=== PATIENT | female | born 1995 | race Caucasian/White ===

== ENCOUNTER 2017-10-11 10:11 | Emergency (ER) | payer OTHER ==
[2017-10-11 10:21] VITALS: BP 121/75; PULSE 87; TEMP 98.8; BMI 27.4
--- NOTE | 2017-10-11 12:18 | PDOC ---
History of Present Illness - General Chief Complaint: Edema Stated Complaint: SWOLLEN HANDS (21 WKS ) Time Seen by Provider: 10/11/17 11:41 History Source: Patient - History of Present Illness Timing/Duration: other Associated Symptoms: denies: chest pain, fever/chills, shortness of breath Past History - Past Medical History Allergies/Adverse Reactions: Allergies Allergy/AdvReac Type Severity Reaction Status Date / Time No Known Allergies Allergy Verified 10/11/17 10:20 Home Medications: Ambulatory Orders Ibuprofen [Motrin -] 600 mg PO TID #21 tablet 10/07/14 Oxycodone HCl/Acetaminophen [Percocet 5-325 mg Tablet -] 1 - 2 tab PO Q6H #14 tablet 10/07/14 Anemia: Yes (IRON PILLS DAILY FOR SEVERAL MONTHS) Asthma: Yes Cancer: No Cardiac Disorders: No COPD: No Diabetes: No GI Disorders: Yes (GALLSTONES DX 3-4 MONTHS AGO) HTN: No Seizures: No Thyroid Disease: No - Surgical History Abdominal Surgery: Yes (appendix removed) Appendectomy: Yes - Reproductive History (#): 3 Para: 2 Therapeutic (s) & number: No Spontaneous : 0 - Immunization History Immunization Up to Date: Yes - Suicide/Smoking/Psychosocial Hx Smoking History: Never smoked Have you smoked in the past 12 months: No Number of Cigarettes Smoked Daily: 0 Cigars Per Day: 0 Hx Alcohol Use: No Drug/Substance Use Hx: No Substance Use Type: None Hx Substance Use Treatment: No Review of Systems - Review of Systems Constitutional: No: Chills, Fever Respiratory: No: Shortness of Breath Cardiac (ROS): No: Chest Pain, Lightheadedness, Palpitations ABD/GI: No: Nausea, Vomiting, Abdominal cramping : No: Dysuria Neurological: No: Headache, Seizure *Physical Exam - Vital Signs Last Vital Signs Temp Pulse Resp BP Pulse Ox 98.8 F 87 18 121/75 99 10/11/17 10:17 10/11/17 10:17 10/11/17 10:17 10/11/17 10:17 10/11/17 10:17 - Physical Exam General Appearance: Yes: Appropriately Dressed. No: Apparent Distress HEENT: positive: Normal Voice Neck: positive: Supple Respiratory/Chest: negative: Respiratory Distress Gastrointestinal/Abdominal: negative: Tender Extremity: positive: Normal Inspection. negative: Tender, Swelling Integumentary: positive: Dry, Warm Neurologic: positive: Fully Oriented, Alert, Normal Mood/Affect Medical Decision Making - Medical Decision Making 10/11/17 12:16 22-year-old female, G1PO, 21 weeks and currently being evaluated for placenta previa per patient, here with complaint of pain to bilateral hand. Patient states she developed intermittent swelling to dorsum of hands bilaterally for 1 month and recently complaining of associated pain to site that usually worsen in am and gets better at nights. Pt states she f/u with Dr Avilez of OB and states she was told to come to ED if she developed pain. Denies leg or facial swelling and no headache, dizziness, abdominal pain or vaginal bleeding. Pt well-appearing and stable in ED with no obvious swelling, edema on exam. No further intervention needed as discussed ED attending. Patient discharged with return precautions. Otherwise, to follow up with OB *DC/Admit/Observation/Transfer Diagnosis at time of Disposition: Bilateral hand swelling - Discharge Dispostion Disposition: HOME Condition at time of disposition: Good - Referrals Referrals: Regi Braun MD [Primary Care Provider] - - Patient Instructions Printed Discharge Instructions: Managing Symptoms of Additional Instructions: Body changes such as some swelling is normal in . Based on our evaluation, there is no emergent pathology at this time. If swelling/pain gets worse and radiates to forearm and arm and you developed any additional symptoms , return to ED Otherwise follow-up with your OB - Post Discharge Activity
== END 2017-10-11 12:31 | disposition home or self-care (01) ==
LOC: JER 10:11
DX: O12.02 Gestational edema, second trimester (principal); Z3A.21 21 weeks gestation of pregnancy
CPT/HCPCS: 99282-25

== ENCOUNTER 2019-12-11 09:49 | Emergency (ER) | payer OTHER ==
--- NOTE | 2019-12-11 10:11 | PDOC ---
Attending Attestation - Resident Resident Name: MartinRaciel - HPI HPI: 12/11/19 11:36 Pt presents to the ED complaining of pelvic spotting and cramping that started two days ago. LMP 10/11. , with 2 elective abortions. - Physicial Exam PE: 12/11/19 11:37 12/11/19 11:39 12/11/19 11:39 Agree with resident exam. PAteint is alert and oriented x 3 and in no acute distress. Abdomen soft, non tender, non distended without guarding or rebound. - Medical Decision Making 12/11/19 11:39 pt presents to the ED complaining of pelvic spotting. Differential includes threatened AB, Spontaneous AB, ectopic, less likely molar . Will check bhcg and transvaginal US.
[2019-12-11 10:27] VITALS: BMI 25.6
--- NOTE | 2019-12-11 10:55 | PDOC ---
History of Present Illness - General Chief Complaint: ,Possible Stated Complaint: MISCARRIAGE Time Seen by Provider: 12/11/19 10:08 History Source: Patient Exam Limitations: No Limitations - History of Present Illness Initial Comments: HPI: 24 y/o female presenting to [facility] ER complaining of vaginal bleeding since Wednesday. Initially heavy but has decreased significantly. Now only notices blood when wiping. Did not observe clotted material. Experienced lower abdominal and lower back cramping pain. Has also significantly decreased over the interim. Denies chest pain, SOB, lightheadedness, or syncope. Pt reports a positive home test. OBGYN Hx: - LMP 11 Oct 2019 - G 7, T 4, P 0, A 3, L 4 - Last PAP Smear Unknown - H/o STDs Chlamydia, diagnosed with first . Received treatment and negative CHUY. - Reports feeling safe in her living environment. Denies concerns for personal safety. Medical Hx: - Denies past medical history. Denies prescription medications. Surgical Hx: - Appendectomy - Cholecystectomy - x1 Review of Systems: In addition to that documented in the HPI above, the additional ROS was obtained : Constitutional- Denies fevers or chills Head- Denies vision changes ENMT- Denies sore throat CV- Denies chest pain Resp- Denies SOB GI- Denies vomiting or diarrhea - Denies painful urination, dysuria MSK- Denies recent trauma Skin- Denies new rashes Neuro- Denies new numbness or tingling or weakness Endocrine- Denies polyuria Heme- Denies bruising Physical Examination: Vital signs and nursing notes reviewed. Constitutional- Well-developed, well-nourished adult female in no acute distress or obvious discomfort. Found sitting upright on [employer] table. Answered all questions appropriately and completely. Head- Normocephalic. No obvious external signs of trauma. Neck- Supple, trachea is midline. Cardiovascular / Chest- Regular rate and regular rhythm. No murmur, rubs, clicks , or gallops. Peripheral pulses- radial pulses full. Respiratory- Breathing unlabored. Equal chest rise and fall. Clear to auscultation bilaterally. No stridor, no wheezing, no rhonchi. Gastrointestinal- abdomen is soft, non-tender, non-distended. No pulsatile masses. No overlying skin lesions or obvious signs of trauma. Female Pelvic: External genitalia unremarkable. Vaginal wall mucosa is unremarkable. Speculum exam performed and cervix visualized. Trace bloody material protruding from OS, which was closed. No significant pooling. Bimanual exam without cervical motion tenderness, adnexal tenderness or any masses appreciated. RN chaperoned exam. Neuro- Alert and oriented x4. Moving all four extremities spontaneously. No facial asymmetry. No slurred speech. Skin- Warm, dry, and intact. Psych- Affect- appropriate. Mood- normal. Speech was non-labored, non- pressured. MDM: 24 y/o female presenting with improving vaginal bleeding in the setting of 1st trimester . Afebrile. Vitals unremarkable for hypotension or tachycardia. Physical exam as described above. Possible completed AB vs threatened AB vs physiologic bleeding of vs ectopic . Blood type O+ noted from previous T/S in [place]. Laboratory data reviewed. No clinically significant derangement noted. Not anemic. UA revealed bacteria and blood without pyuria, nitrites, or leukocyte esterase. Will prescribe Macrobid for asymptomatic bacteriuria in setting of . Will also prescribe vitamins. TVUS revealed IUP with possible small subchorionic hemorrhage. Will provide the pt a copy of the U/S report and encourage close OB f/u in clinic. 11 Dec 2019 13:51 PM Pt reassessed. Reports no further pain. Continues to notice trace bleeding while wiping without significant change from this morning. Discussed physical exam findings, laboratory results, and U/S findings with pt. Answered all questions. Provided return precautions. pt expressed verbal understanding and agreement with plan to discharge home with outpatient follow up. Provided copies of todays results. Encouraged close OB f/u. Raciel Martin M.D., PGY2 Emergency Medicine Resident Past History - Past Medical History Allergies/Adverse Reactions: Allergies Allergy/AdvReac Type Severity Reaction Status Date / Time No Known Allergies Allergy Verified 12/11/19 10:19 Home Medications: Ambulatory Orders Nitrofurantoin Monohyd/M-Cryst [Macrobid -] 100 mg PO BID #14 capsule 12/11/19 Vit No.124/Iron/Folic [ Vitamin Tablet] 1 each PO DAILY #30 tablet 12/11/19 Anemia: Yes (IRON PILLS DAILY FOR SEVERAL MONTHS) Asthma: Yes Cancer: No Cardiac Disorders: No COPD: No Diabetes: No GI Disorders: Yes (GALLSTONES DX 3-4 MONTHS AGO) HTN: No Seizures: No Thyroid Disease: No - Surgical History Abdominal Surgery: Yes (appendix removed) Appendectomy: Yes - Reproductive History Is Patient Now?: Yes (=+ home test, has not) (#): 4 Para: 2 Therapeutic (s) & number: No Spontaneous : 0 - Immunization History Immunization Up to Date: Yes - Psycho Social/Smoking Cessation Hx Smoking History: Unknown if ever smoked Have you smoked in the past 12 months: No Number of Cigarettes Smoked Daily: 0 Cigars Per Day: 0 Hx Alcohol Use: No Drug/Substance Use Hx: No Substance Use Type: None Hx Substance Use Treatment: No *Physical Exam - Vital Signs Last Vital Signs Temp Pulse Resp BP Pulse Ox 98.5 F 83 16 105/66 100 12/11/19 10:00 12/11/19 10:00 12/11/19 10:00 12/11/19 10:00 12/11/19 10:00 ED Treatment Course - LABORATORY CBC & Chemistry Diagram: 12/11/19 11:10 Discharge - Discharge Information Problems reviewed: Yes Clinical Impression/Diagnosis: Vaginal bleeding before 22 weeks gestation Condition: Good Disposition: HOME - Admission No - Additional Discharge Information Prescriptions: Nitrofurantoin Monohyd/M-Cryst [Macrobid -] 100 mg PO BID #14 capsule Vit No.124/Iron/Folic [ Vitamin Tablet] 1 each PO DAILY #30 tablet - Follow up/Referral Referrals: Britt Avila MD [Staff Physician] - CallBack Reminder: GC/C and HIV tests - Patient Discharge Instructions Patient Printed Discharge Instructions: DI for Vaginal Bleeding During Additional Instructions: You were seen today for vaginal bleeding while you are . Your blood work was normal. Your ultrasound showed a possible small amount of blood around the fetus (subchorionic hemorrhage). This is not something life threatening at this time, but will need to be further evaluated by your OB. Your urine test did show a small amount of bacteria. This could be a urinary tract infection. It needs to be treated because you are . I have sent a prescription for Macrobid and for vitamins to your pharmacy. Take as directed on the package insert. Do not exceed the recommended dosage. The last urine test and the HIV test will take several days to complete. The hospital will call you if the results are positive. You can call medical records in the next 3-4 business days as well. The number is included in this packet. You can take over the counter Tylenol as needed for pain. Take as directed on the package insert. Do not exceed the recommended dosage. Follow up with your OBGYN doctor in the next week. You will need to call to make an appointment. The number is included in this packet. A copy of todays results are attached to this packet. Take it to the appointment so your doctor can review them. Go to the nearest emergency department if your condition worsens or you feel like you need additional emergency evaluation. Print Language: MALTESE - Post Discharge Activity Work/Back to School Note: Back to Work
[2019-12-11] MEDS ORDERED: ACETAMINOPHEN 325 MG TABLET (FP) PO ONE (11:14)
--- NOTE | 2019-12-11 11:16 | PDOC ---
*Physical Exam - Vital Signs Last Vital Signs Temp Pulse Resp BP Pulse Ox 98.5 F 83 16 105/66 100 12/11/19 10:00 12/11/19 10:00 12/11/19 10:00 12/11/19 10:00 12/11/19 10:00 ED Treatment Course - LABORATORY CBC & Chemistry Diagram: 12/11/19 11:10 - RADIOLOGY Radiology Studies Ordered: Category Date Time Status TRANSVAGINAL US PREG [US] Stat Ultrasound 12/11/19 10:34 Ordered Medical Decision Making - Medical Decision Making 12/11/19 11:03 Patient seen as pre-attending with Dr. Martin (PGY-2) and Dr. Thomas ( Attending) 24 y/o female with LMP of October 11 here with 2 day h/o vaginal bleed + abdominal cramping. Home test, no current care Pelvic exam by Dr. Martin shows blood in vaginal vault, non-pooling, closed cervical os. Will obtain B-HCG, CBC and TVUS - evaluating for threatened AB vs. SAB vs. subchorionic hematoma As per EMR patient is O Positive - no need for [place] 12/11/19 11:58 Patient to U/S pending B-HCG 12/11/19 12:14 UA shows 2+ blood, 141 bacteria 12/11/19 12:15 Called lab for B-HCG 12/11/19 14:07 TVUS shows IUP @ 9 weeks 2 day No ectopic Bleeding likely 2/2 to subchorionic hemorrhage G/C pending, callback order placed by Dr. Martin Home w/Macrobid, return precautions, [facility] follow-up to establish care. Clinical Impression: ASx Bacteruria of , Subchronic Hemorrhage Discharge - Discharge Information Problems reviewed: Yes Clinical Impression/Diagnosis: Vaginal bleeding before 22 weeks gestation Condition: Good Disposition: HOME - Admission No - Additional Discharge Information Prescriptions: Nitrofurantoin Monohyd/M-Cryst [Macrobid -] 100 mg PO BID #14 capsule Vit No.124/Iron/Folic [ Vitamin Tablet] 1 each PO DAILY #30 tablet - Follow up/Referral Referrals: Britt Avila MD [Staff Physician] - CallBack Reminder: GC/C and HIV tests - Patient Discharge Instructions Patient Printed Discharge Instructions: DI for Vaginal Bleeding During Additional Instructions: You were seen today for vaginal bleeding while you are . Your blood work was normal. Your ultrasound showed a possible small amount of blood around the fetus (subchorionic hemorrhage). This is not something life threatening at this time, but will need to be further evaluated by your OB. Your urine test did show a small amount of bacteria. This could be a urinary tract infection. It needs to be treated because you are . I have sent a prescription for Macrobid and for vitamins to your pharmacy. Take as directed on the package insert. Do not exceed the recommended dosage. The last urine test and the HIV test will take several days to complete. The hospital will call you if the results are positive. You can call medical records in the next 3-4 business days as well. The number is included in this packet. You can take over the counter Tylenol as needed for pain. Take as directed on the package insert. Do not exceed the recommended dosage. Follow up with your OBGYN doctor in the next week. You will need to call to make an appointment. The number is included in this packet. A copy of todays results are attached to this packet. Take it to the appointment so your doctor can review them. Go to the nearest emergency department if your condition worsens or you feel like you need additional emergency evaluation. Print Language: FAROESE - Post Discharge Activity Work/Back to School Note: Back to Work
[2019-12-11] MEDS ORDERED: ACETAMINOPHEN 325 MG TABLET (FP) ONE (11:25)
[2019-12-11 11:37] LABS: BASO % 0.1 % (0-2.0); EOS % 1.2 % (0-4.5); HEMATOCRIT 37.8 % (32.4-45.2); HEMOGLOBIN 12.5 GM/dL (10.7-15.3); LYMPH % 20.8 % (8-40); MCH 27.3 pg (25.7-33.7); MEAN CELL VOLUME 82.8 fl (80-96); MEAN PLT VOLUME 9.3 fl (7.5-11.1); MONO % 5.3 % (3.8-10.2); NEUT % 72.6 % (42.8-82.8); PLATELET COUNT 209 K/MM3 (134-434); RBC 4.56 M/mm3 (3.60-5.2); WHITE BLOOD COUNT 8.6 K/mm3 (4.0-10.0)
[2019-12-11 11:45] LABS: EPI CELLS 5.6 /HPF (0-5/HPF); HYALINE CASTS 2 /lpf (0-8); PH,URINE 6.5 (5.0-8.0); URINE APPEARANCE CLEAR; URINE BACTERIA 141.4 /hpf (NEGATIVE); URINE BILIRUBIN NEGATIVE (NEGATIVE); URINE COLOR YELLOW; URINE GLUCOSE (UA) NEGATIVE (NEGATIVE); URINE KETONE NEGATIVE (NEGATIVE); URINE LEUK ESTERASE NEGATIVE (NEGATIVE); URINE NITRITE NEGATIVE (NEGATIVE); URINE PROTEIN NEGATIVE (NEGATIVE); URINE RBC 1 /hpf (0-4); URINE WBC 2 /hpf (0-5)
[2019-12-11 14:28] VITALS: BP 103/56; PULSE 76; TEMP 98.1
== END 2019-12-11 14:25 | disposition home or self-care (01) ==
LOC: JER 09:49
DX: O26.891 Other specified pregnancy related conditions, first trimester (principal); O20.8 Other hemorrhage in early pregnancy; R82.71 Bacteriuria; Z3A.09 9 weeks gestation of pregnancy; D64.9 Anemia, unspecified; Z90.49 Acquired absence of other specified parts of digestive tract
CPT/HCPCS: 36415; 76801-TC; 81003; 84702; 85025; 87086; 87389; 87491; 87591; 87661; 99284-25